=== PATIENT | male | born 1940 | race African-American/Black ===

== ENCOUNTER → 2017-05-26 | Outpatient (CLI) | payer MEDICARE, MEDICAID ==
[~2017-05-26] MED LIST: AMLO5TAB2 PO; ASPI81CH43 PO; ATOR1TAB PO; CARB25TA22 PO; CHOLCAP12 OR; CILO100T PO; CLOP75TA41 PO; FURO40TA PO; GABA-497 PO; GLIP-218 PO; ISOS1TAB37 PO; LISI40TA PO; PANT40T PO; TERA5CAP42 PO; TRAM-297 PO
== END | disposition home or self-care (01) ==
LOC: XY 10:37
PROVIDERS: ATTEND Internal Medicine
DX: M79.604 Pain in right leg (principal); M79.605 Pain in left leg; R53.1 Weakness
CPT/HCPCS: 93923; 93925